=== PATIENT | male | born 1960 | race Caucasian/White ===

== ENCOUNTER 2017-02-17 23:50 | Observation (INO) | payer MEDICAID ==
[~2017-02-17] VITALS: Ht 154.9 cm; Wt 90.7 kg
[2017-02-18] MEDS ORDERED: SODIUM CHLORIDE 0.9% 1,000 ML IV ONE (01:29)
[2017-02-18] MEDS ORDERED: FAMOTIDINE 20MG/2ML VIAL IV ONE (01:30)
[2017-02-18] MEDS ORDERED: METHYLPREDNISOLONE SOD SUCC 125 MG/2 ML VIAL IV ONE (01:30)
[2017-02-18] MEDS ORDERED: DIPHENHYDRAMINE 50MG/ML VIAL IV ONE (01:30)
[2017-02-18 01:46] LABS: BASOPHILS % 0.4 % (0.0-2.0); EOSINOPHILS % 2.2 % (0.0-5.0); HEMOGLOBIN. 14.6 g/dL (14.0-18.0); LYMPHOCYTES % 15.6 % (20.0-50.0); MEAN CORPUSCULAR HEMOGLOBIN 31.1 pg (28.0-32.0); MEAN CORPUSCULAR VOLUME 93.8 fL (80.0-94.0); MEAN PLATELET VOLUME 8.6 fl (7.4-10.4); MONOCYTES % 7.5 % (2.0-8.0); NEUTROPHILS % 74.3 % (40.0-76.0); PLATELET 238 x1000/uL (130-400); RED BLOOD CELL COUNT 4.69 mill/uL (4.7-6.1); RED CELL DISTRIBUTION WIDTH 13.9 % (11.6-14.6)
[2017-02-18 01:57] LABS: CARBON DIOXIDE 26 mEq/L (21-32); CHLORIDE 105 mEq/L (98-107)
[2017-02-18 04:00] VITALS: BP 146/71
[2017-02-18] MEDS ORDERED: CLONIDINE 0.1MG TABLET PO PRN (04:15)
[2017-02-18] MEDS ORDERED: MAGNESIUM/ALUMINUM HYDROXIDE/SIMETHICONE 30ML UDC PO PRN (04:15)
[2017-02-18] MEDS ORDERED: ACETAMINOPHEN 325MG TABLET PO PRN (04:15)
[2017-02-18] MEDS ORDERED: ONDANSETRON HCL 4MG/2ML VIAL IV PRN (04:15)
[2017-02-18] MEDS ORDERED: DIPHENHYDRAMINE 50MG/ML VIAL IV PRN (04:15)
[2017-02-18 05:00] VITALS: BP 146/71
[2017-02-18] MEDS ORDERED: METHYLPREDNISOLONE SOD SUCC 125 MG/2 ML VIAL IV NR ×3 (06:00→08:00)
[2017-02-18] MEDS ORDERED: SODIUM CHLORIDE 0.9% INJ 3ML FLUSH IVF SCH (06:00)
[2017-02-18 08:00] VITALS: BP 127/84
[2017-02-18] MEDS ORDERED: FAMOTIDINE 20MG/2ML VIAL IV SCH (09:00)
[2017-02-18 12:00] VITALS: BP 137/74
[2017-02-18 14:51] VITALS: BP 137/74
[2017-02-18 16:00] VITALS: BP 156/97
== END 2017-02-18 16:20 | disposition home or self-care (01) ==
LOC: ER 23:50 → 7WST 02-18 02:20 → INTOOBSV 02-18 02:20 → EDBEDREQ 02-18 02:24 → ER 02-18 02:39 → CANRESERV 02-18 03:13 → ENRESERV 02-18 03:13
PROVIDERS: ADMIT Internal Medicine; ATTEND Internal Medicine
DX: T78.3XXA Angioneurotic edema, initial encounter (principal); I51.7 Cardiomegaly; G62.9 Polyneuropathy, unspecified; J98.11 Atelectasis; R01.1 Cardiac murmur, unspecified; X58.XXXA Exposure to other specified factors, initial encounter
CPT/HCPCS: 36415; 71010; 80053; 85025; 93005; 96361; 96374; 96375; 96376; 99291; G0378; J1200; J2930; J3490; J7030